=== PATIENT | female | born 1955 ===

== ENCOUNTER 2020-06-08 18:20 | Inpatient (IN) | payer MEDICARE ==
[2020-06-08] MEDS ORDERED: ACETAMINOPHEN TAB 325 MG TAB PO PRN (22:40)
[2020-06-08] MEDS: NICOTINE 21MG/24HR PATCH TRANSDERM SCH (23:51)
[2020-06-08] MEDS: methylPREDNISolone SOD SUCCI 125 MG/2 ML VIAL IV SCH (23:51)
[2020-06-08] MEDS: SODIUM CHLORIDE 0.9% 1,000 ML IV SCH (23:52)
[2020-06-09] MEDS: methylPREDNISolone SOD SUCCI 125 MG/2 ML VIAL IV SCH (06:27)
[2020-06-09] MEDS: NICOTINE 21MG/24HR PATCH TRANSDERM SCH (07:24)
[2020-06-09] MEDS: HEPARIN SODIUM,PORCINE 5,000 UNIT/ML 1 ML VIAL SQ SCH ×2 (07:35→20:33)
[2020-06-09 08:02] LABS: Basophils % (A) 1 %; Eosinophils % (A) 0 %; HCT 42.7 % (34.0-46.0); HGB 12.5 gm/dL (11.4-16.0); Hypochromasia Marked; Lymphocytes # (A) 0.6 k/uL (1.0-4.8); Lymphocytes % (A) 11 %; MCH 29.5 pg (25.0-35.0); MCHC 29.3 g/dL (31.0-37.0); MCV 100.7 fL (80.0-100.0); Mean Platelet Volume 7.5; Monocytes # (A) 0.1 k/uL (0-1.0); Monocytes % (A) 2 %; Neutrophils % (A) 86 %; Platelet Count 182 k/uL (150-450); RBC 4.24 m/uL (3.80-5.40); RDW 13.5 % (11.5-15.5); WBC 5.8 k/uL (3.8-10.6)
--- NOTE | 2020-06-09 08:18 | XR ---
EXAMINATION TYPE: XR chest 2V DATE OF EXAM: 06/09/2020 COMPARISON: NONE HISTORY: History of CHF with shortness of breath TECHNIQUE: Frontal and lateral views of the chest are obtained. FINDINGS: There is background chronic emphysematous change without suspicious focal air space opacit y, pleural effusion, or pneumothorax seen. The cardiac silhouette size is mildly enlarged with ather osclerotic change aortic knob. The osseous structures are demineralized. IMPRESSION: Chronic emphysematous change and mild cardiomegaly without suspicious acute pulmonary pr ocess.
[2020-06-09 08:21] LABS: African American GFR (CKD) >90 (>60 ml/min/1.73 sqM); Anion Gap 6 mmol/L; Blood Urea Nitrogen 13 mg/dL (7-17); Calcium 8.8 mg/dL (8.4-10.2); Carbon Dioxide 38 mmol/L (22-30); Chloride 95 mmol/L (98-107); Glucose 206 mg/dL (74-99); Non-African American GFR(CKD) >90 (>60 ml/min/1.73 sqM); Potassium 5.1 mmol/L (3.5-5.1); Sodium 139 mmol/L (137-145)
[2020-06-09] MEDS: SYMBICORT 160-4.5 MCG INHALER INHALATION SCH ×2 (08:29→19:37)
[2020-06-09] MEDS: IPRATROPIUM-ALBUTEROL 3 ML NEB INHALATION PRN ×3 (08:29→19:37)
[2020-06-09] MEDS: DOXYCYCLINE 100 MG in SODIUM CHLORIDE 0.9% 100 ML IVPB SCH ×2 (08:34→20:32)
[2020-06-09] MEDS ORDERED: FAMOTIDINE 20 MG TAB PO SCH (09:00)
--- NOTE | 2020-06-09 11:36 | P.HPIM ---
History of Present Illness Patient is 63-year-old female is admitted for COPD exacerbation patient has symptoms for last few days with cough and sputum production yellowish production. Patient smokes about 1 pack per day trying to quit smoking. Unable to get much of the history as patient is sleepy and drowsy. Patient chest x-ray did not show any pneumonia. Patient was started on doxycycline and systemic steroids. Review of Systems All other review of systems is negative except for those mentioned above Past Medical History Past Medical History: Heart Failure, COPD History of Any Multi-Drug Resistant Organisms: None Reported Past Surgical History: Cholecystectomy, Tonsillectomy Additional Past Surgical History / Comment(s): brocke neck young, ankle surgery Past Anesthesia/Blood Transfusion Reactions: No Reported Reaction Past Psychological History: No Psychological Hx Reported Smoking Status: Current every day smoker Past Alcohol Use History: None Reported - Past Family History Mother Family Medical History: COPD Medications and Allergies Home Medications Medication Instructions Recorded Confirmed Type Ipratropium-Albuterol Nebulize 3 ml INHALATION RT-TID 06/08/20 06/08/20 History [Duoneb 0.5 mg-3 mg/3 ml Soln] Allergies Allergy/AdvReac Type Severity Reaction Status Date / Time No Known Allergies Allergy Verified 06/08/20 23:24 Physical Exam Vitals: Vital Signs Temp Pulse Pulse Resp BP Pulse Ox 06/09/20 11:24 118 H 20 116/73 95 06/09/20 08:46 128 H 06/09/20 08:29 124 H 06/09/20 08:11 18 06/09/20 07:00 98.3 F 114 H 18 111/72 91 L 06/09/20 04:00 17 06/09/20 01:20 98.3 F 138 H 17 114/65 94 L 06/09/20 00:00 20 06/08/20 22:55 98.1 F 118 H 16 119/78 96 Intake and Output 06/08/20 06/09/20 06/09/20 22:59 06:59 14:59 Other: Weight 52.5 kg PHYSICAL EXAMINATION: GENERAL: The patient is alert and oriented x3, not in any acute distress. Well developed, well nourished. HEENT: Pupils are round and equally reacting to light. EOMI. No scleral icterus. No conjunctival pallor. Normocephalic, atraumatic. No pharyngeal erythema. No thyromegaly. CARDIOVASCULAR: S1 and S2 present. No murmurs, rubs, or gallops. PULMONARY: Diffuse bilateral rhonchi and the significant expiratory wheezing on exam ABDOMEN: Soft, nontender, nondistended, normoactive bowel sounds. No palpable organomegaly. MUSCULOSKELETAL: No joint swelling or deformity. EXTREMITIES: No cyanosis, clubbing, or pedal edema. NEUROLOGICAL: Gross neurological examination did not reveal any focal deficits. SKIN: No rashes. Results CBC & Chem 7: 06/09/20 07:37 06/09/20 07:37 Labs: Abnormal Lab Results - Last 24 Hours (Table) 06/09/20 06/09/20 Range/Units 07:37 07:37 MCV 100.7 H (80.0-100.0) fL MCHC 29.3 L (31.0-37.0) g/dL Lymphocytes # 0.6 L (1.0-4.8) k/uL Chloride 95 L (98-107) mmol/L Carbon Dioxide 38 H (22-30) mmol/L Creatinine 0.42 L (0.52-1.04) mg/dL Glucose 206 H (74-99) mg/dL Thrombosis Risk Factor Assmnt - Choose All That Apply Each Factor Represents 1 point: Abnormal pulmonary function (COPD) Each Risk Factor Represents 2 Points: Age 61-74 years Thrombosis Risk Factor Assessment Total Risk Factor Score: 3 Thrombosis Risk Factor Assessment Level: Moderate Risk Assessment and Plan Plan: -Acute hypercapnic respiratory failure secondary to COPD exacerbation patient will continue on systemic steroids and inhalational treatments and doxycycline -Severe tracheal bronchitis continued on cyclosporine cultures will be obtained - sinus tachycardia secondary to hypoxemia -Continued nicotine use: Counseling was provided -DVT prophylaxis with the Lovenox and GI prophylaxis with Pepcid
--- NOTE | 2020-06-09 14:04 | P.CNPUL ---
History of Present Illness Consult date: 06/09/20 Requesting physician: Markus Kaye Reason for consult: dyspnea Chief complaint: Dyspnea, wheezing coughing History of present illness: 64-year-old white female patient, chronic smoker, with known history of COPD, on home oxygen at 2 L around the clock, who came in for evaluation of increased shortness of breath, patient was having heart time walking related to exertional dyspnea, wheezing, cough. Patient lives at her brother's house, with multiple other people in the house who are smokers. Patient was producing some yellow colored sputum. Patient was sleepy and drowsy. Chest x-ray showed chronic emphysematous changes and mild cardio megaly without suspicious acute pulmonary process. She was started on nebulized bronchodilators, Symbicort, IV steroids. Labs reviewed, white blood cell count is within normal limits 5.8, hemoglobin is 12.5, sodium is 139, potassium 5.1, chloride is 95, CO2 38, BUN is 13, creatinine 0.42. Currently awake and alert, answering questions appropriately, she has a loose congested cough, diffuse wheezing and rhonchi bilaterally. Afebrile, currently on 4 L of oxygen and the pulse ox of 95%. Review of Systems All systems: negative Constitutional: Denies chills, Denies fever Eyes: denies blurred vision, denies pain Ears, nose, mouth and throat: Denies headache, Denies sore throat Cardiovascular: Denies chest pain, Denies shortness of breath Respiratory: Reports congestion, Reports cough with sputum, Reports dyspnea, Reports respiratory infections, Reports wheezing, Denies cough Gastrointestinal: Denies abdominal pain, Denies diarrhea, Denies nausea, Denies vomiting Genitourinary: Denies dysuria, Denies hematuria Musculoskeletal: Denies myalgias Integumentary: Denies pruritus, Denies rash Neurological: Denies numbness, Denies weakness Psychiatric: Denies anxiety, Denies depression Endocrine: Denies fatigue, Denies weight change Past Medical History Past Medical History: COPD History of Any Multi-Drug Resistant Organisms: None Reported Past Surgical History: Cholecystectomy, Tonsillectomy Additional Past Surgical History / Comment(s): Neck surgery post swimming accident, ankle surgery Past Anesthesia/Blood Transfusion Reactions: No Reported Reaction Past Psychological History: No Psychological Hx Reported Smoking Status: Current every day smoker Past Alcohol Use History: None Reported - Past Family History Mother Family Medical History: COPD Medications and Allergies Home Medications Medication Instructions Recorded Confirmed Type Ipratropium-Albuterol Nebulize 3 ml INHALATION RT-TID 06/08/20 06/08/20 History [Duoneb 0.5 mg-3 mg/3 ml Soln] Allergies Allergy/AdvReac Type Severity Reaction Status Date / Time No Known Allergies Allergy Verified 06/08/20 23:24 Physical Exam Vitals: Vital Signs Temp Pulse Pulse Resp BP Pulse Ox 06/09/20 12:09 124 H 06/09/20 11:55 120 H 06/09/20 11:24 118 H 20 116/73 95 06/09/20 08:46 128 H 06/09/20 08:29 124 H 06/09/20 08:11 18 06/09/20 07:00 98.3 F 114 H 18 111/72 91 L 06/09/20 04:00 17 06/09/20 01:20 98.3 F 138 H 17 114/65 94 L 06/09/20 00:00 20 06/08/20 22:55 98.1 F 118 H 16 119/78 96 Intake and Output 06/08/20 06/09/20 06/09/20 22:59 06:59 14:59 Intake Total 550 Balance 550 Intake: Intake, IV Titration 300 Amount Sodium Chloride 0.9% 1, 300 000 ml @ 50 mls/hr IV . Q20H [facility] Rx#:[id number] Oral 250 Other: # Voids 1 Weight 52.5 kg GENERAL EXAM: Alert, very pleasant, 64-year-old white female, for liters of oxygen pulse ox of 95% comfortable in no apparent distress. HEAD: Normocephalic/atraumatic. EYES: Normal reaction of pupils, equal size. Conjunctiva pink, sclera white. NOSE: Clear with pink turbinates. THROAT: No erythema or exudates. NECK: No masses, no JVD, no thyroid enlargement, no adenopathy. CHEST: No chest wall deformity. Symmetrical expansion. LUNGS: Equal air entry with diffuse wheezes, rhonchi CVS: Regular rate and rhythm, normal S1 and S2, no gallops, no murmurs, no rubs ABDOMEN: Soft, nontender. No hepatosplenomegaly, normal bowel sounds, no guarding or rigidity. EXTREMITIES: No clubbing, no edema, no cyanosis, 2+ pulses and upper and lower extremities. MUSCULOSKELETAL: Muscle strength and tone normal. SPINE: No scoliosis or deformity SKIN: No rashes CENTRAL NERVOUS SYSTEM: Alert and oriented -3. No focal deficits, tone is normal in all 4 extremities. PSYCHIATRIC: Alert and oriented -3. Appropriate affect. Intact judgment and insight. Results - Laboratory Findings CBC and BMP: 06/09/20 07:37 06/09/20 07:37 Abnormal lab findings: Abnormal Labs 06/09/20 06/09/20 07:37 07:37 MCV 100.7 H MCHC 29.3 L Lymphocytes # 0.6 L Chloride 95 L Carbon Dioxide 38 H Creatinine 0.42 L Glucose 206 H - Diagnostic Findings Chest x-ray: report reviewed, image reviewed Assessment and Plan Plan: Assessment: #1. Acute on chronic hypoxic respiratory failure related to acute exacerbation of COPD and purulent tracheobronchitis #2. Suspect chronic hypercapnic respiratory failure related to COPD #3. Chronic and ongoing history of smoking Plan: Continue with current medical treatment, steroids, nebulized bronchodilators, empiric antibiotics, patient is quite bronchospastic and dyspneic. Chest x-ray has been reviewed showing no acute process. Smoking cessation was advised I performed a history & physical examination of the patient and discussed their management with my nurse practitioner, Nadia Saunders. I reviewed the nurse practitioner's note and agree with the documented findings and plan of care. Lung sounds are positive for diffuse wheezes throughout the lung canela. The findings and the impression was discussed with the patient. I attest to the documentation by the nurse practitioner. Time with Patient: Greater than 30
[2020-06-09] MEDS: methylPREDNISolone SOD SUCCI 40 MG/ML 1 ML VIAL IV SCH ×2 (16:50→23:04)
[2020-06-09] MEDS: SODIUM CHLORIDE 0.9% 1,000 ML IV SCH (16:53)
[2020-06-09] MEDS: FAMOTIDINE 20 MG TAB PO SCH (20:33)
[2020-06-09] MEDS: DOCUSATE 100 MG CAP PO PRN (21:18)
[2020-06-10] MEDS: SYMBICORT 160-4.5 MCG INHALER INHALATION SCH ×2 (07:05→20:12)
[2020-06-10] MEDS: DOXYCYCLINE 100 MG in SODIUM CHLORIDE 0.9% 100 ML IVPB SCH ×2 (07:39→20:30)
[2020-06-10] MEDS: methylPREDNISolone SOD SUCCI 40 MG/ML 1 ML VIAL IV SCH ×3 (07:40→23:06)
[2020-06-10] MEDS: NICOTINE 21MG/24HR PATCH TRANSDERM SCH (07:43)
[2020-06-10] MEDS: HEPARIN SODIUM,PORCINE 5,000 UNIT/ML 1 ML VIAL SQ SCH ×2 (07:45→20:30)
[2020-06-10] MEDS: FAMOTIDINE 20 MG TAB PO SCH ×2 (07:47→20:30)
[2020-06-10] MEDS ORDERED: ENOXAPARIN 40 MG/0.4 ML SYRINGE SQ SCH (09:00)
--- NOTE | 2020-06-10 11:11 | P.PN ---
Subjective Progress Note Date: 06/10/20 Principal diagnosis: Acute on chronic hypoxic respiratory failure related to acute exacerbation of COPD 64-year-old white female patient, chronic smoker, with known history of COPD, on home oxygen at 2 L around the clock, who came in for evaluation of increased shortness of breath, patient was having heart time walking related to exertional dyspnea, wheezing, cough. Patient lives at her brother's house, with multiple other people in the house who are smokers. Patient was producing some yellow colored sputum. Patient was sleepy and drowsy. Chest x-ray showed chronic emp hysematous changes and mild cardio megaly without suspicious acute pulmonary process. She was started on nebulized bronchodilators, Symbicort, IV steroids. Labs reviewed, white blood cell count is within normal limits 5.8, hemoglobin is 12.5, sodium is 139, potassium 5.1, chloride is 95, CO2 38, BUN is 13, creatinine 0.42. Currently awake and alert, answering questions appropriately, she has a loose congested cough, diffuse wheezing and rhonchi bilaterally. Afebrile, currently on 4 L of oxygen and the pulse ox of 95%. On 06/10/2020 patient is seen in follow-up on a general medical surgical floor, she is awake and alert, still quite dyspneic with any exertion and bronchospastic, and has a congested cough. Patient remains on antibiotics, IV steroids, nebulized bronchodilators, patient is on 4 L oxygen and pulse ox of 96%, slightly tachycardic, no fever or chills. No new labs today. Cough with occasional production of yellowish sputum. Objective - Vital Signs Vital signs: Vital Signs Temp 97.2 F L 06/10/20 07:00 Pulse 110 H 06/10/20 07:00 Resp 17 06/10/20 08:00 BP 109/69 06/10/20 07:00 Pulse Ox 96 06/10/20 07:00 Intake & Output 06/09/20 06/10/20 06/10/20 18:59 06:59 18:59 Intake Total 750 Balance 750 Intake: Intake, IV Titration 300 Amount Sodium Chloride 0.9% 1, 300 000 ml @ 50 mls/hr IV . Q20H [facility] Rx#:[id number] Oral 450 Other: # Voids 1 2 - Exam GENERAL EXAM: Alert, very pleasant, 64-year-old white female, 4 liters of oxygen pulse ox of 96% comfortable in no apparent distress. HEAD: Normocephalic/atraumatic. EYES: Normal reaction of pupils, equal size. Conjunctiva pink, sclera white. NOSE: Clear with pink turbinates. THROAT: No erythema or exudates. NECK: No masses, no JVD, no thyroid enlargement, no adenopathy. CHEST: No chest wall deformity. Symmetrical expansion. LUNGS: Equal air entry with diffuse wheezes, rhonchi CVS: Regular rate and rhythm, normal S1 and S2, no gallops, no murmurs, no rubs ABDOMEN: Soft, nontender. No hepatosplenomegaly, normal bowel sounds, no guarding or rigidity. EXTREMITIES: No clubbing, no edema, no cyanosis, 2+ pulses and upper and lower extremities. MUSCULOSKELETAL: Muscle strength and tone normal. SPINE: No scoliosis or deformity SKIN: No rashes CENTRAL NERVOUS SYSTEM: Alert and oriented -3. No focal deficits, tone is normal in all 4 extremities. PSYCHIATRIC: Alert and oriented -3. Appropriate affect. Intact judgment and insight. - Labs CBC & Chem 7: 06/09/20 07:37 06/09/20 07:37 Assessment and Plan Plan: Assessment: #1. Acute on chronic hypoxic respiratory failure related to acute exacerbation of COPD and purulent tracheobronchitis #2. Suspect chronic hypercapnic respiratory failure related to COPD #3. Chronic and ongoing history of smoking Plan: Continue current medical treatment, continue antibiotics, patient still quite bronchospastic and dyspneic, not back to baseline. Wean FiO2. I performed a history & physical examination of the patient and discussed their management with my nurse practitioner, Nadia Saunders. I reviewed the nurse practitioner's note and agree with the documented findings and plan of care. Lung sounds are positive for diffuse wheezes throughout the lung canela. The findings and the impression was discussed with the patient. I attest to the documentation by the nurse practitioner. Time with Patient: Less than 30
[2020-06-10] MEDS: SODIUM CHLORIDE 0.9% 1,000 ML IV SCH (13:25)
[2020-06-10] MEDS: IPRATROPIUM-ALBUTEROL 3 ML NEB INHALATION PRN ×2 (16:05→20:11)
--- NOTE | 2020-06-10 16:52 | P.PN ---
Subjective Progress Note Date: 06/10/20 Principal diagnosis: Patient is 63-year-old female is admitted for COPD exacerbation patient has symptoms for last few days with cough and sputum production yellowish production. Patient smokes about 1 pack per day trying to quit smoking. Unable to get much of the history as patient is sleepy and drowsy. Patient chest x-ray did not show any pneumonia. Patient was started on doxycycline and systemic steroids. 06/10/2020 Patient is seen and evaluated in follow-up and continues to be quite dyspneic and bronchospastic and is having coughing spells when attempting to talk. Patient states she is having more mucus production and able to expectorate. Patient is currently maintained on IV antibiotics in the form of doxycycline along with IV steroids and breathing inhalational treatments and will continue at this time. Pulmonary is following. Patient is awake and alert and oriented sitting up in the chair. Patient is currently maintained on 4 L of oxygen and discussed with nursing staff about increasing activity and weaning off FiO2. Patient does have a nebulizer at home although is requesting a new one and a prescription was provided to case management for this. Review of systems: Constitutional: Reports mild fatigue, no reports of fever, or chills Cardiovascular: No reports of chest pain or palpitations Respiratory: Reports shortness of breath and cough with phlegm production GI: No reports of nausea, vomiting, or diarrhea : No reports of dysuria or retention Neurovascular: No reports of weakness or numbness All medications have been reviewed Objective - Vital Signs Vital signs: Vital Signs Temp 97.2 F L 06/10/20 07:00 Pulse 110 H 06/10/20 07:00 Resp 17 06/10/20 08:00 BP 109/69 06/10/20 07:00 Pulse Ox 96 06/10/20 07:00 Intake & Output 06/09/20 06/10/20 06/10/20 18:59 06:59 18:59 Intake Total 750 700 Balance 750 700 Intake: Intake, IV Titration 300 400 Amount Sodium Chloride 0.9% 1, 300 400 000 ml @ 50 mls/hr IV . Q20H [facility] Rx#:[id number] Oral 450 300 Other: # Voids 1 2 2 - Exam GENERAL: The patient is alert and oriented x3, not in any acute distress. Well developed, well nourished. HEENT: Pupils are round and equally reacting to light. EOMI. No scleral icterus. No conjunctival pallor. Normocephalic, atraumatic. No pharyngeal erythema. No thyromegaly. CARDIOVASCULAR: S1 and S2 present. No murmurs, rubs, or gallops. PULMONARY: Diffuse bilateral rhonchi and the significant expiratory wheezing on exam, bronchospastic ABDOMEN: Soft, nontender, nondistended, normoactive bowel sounds. No palpable organomegaly. MUSCULOSKELETAL: No joint swelling or deformity. EXTREMITIES: No cyanosis, clubbing, or pedal edema. NEUROLOGICAL: Gross neurological examination did not reveal any focal deficits. SKIN: No rashes. - Labs CBC & Chem 7: 06/09/20 07:37 06/09/20 07:37 Assessment and Plan Assessment: -Acute hypercapnic respiratory failure secondary to COPD exacerbation patient will continue on systemic steroids and inhalational treatments and doxycycline -Severe purulent tracheobronchitis continued on cyclosporine, cultures will be obtained -sinus tachycardia secondary to hypoxemia -Continued nicotine use: Counseling was provided -DVT prophylaxis with the Lovenox -GI prophylaxis with Pepcid -Full code And: Continue current medications, management, and symptomatic treatment. Patient is maintained on IV steroids along with IV antibiotics in the form of doxycycline and breathing inhalational treatments and will continue at this time. We'll discontinue IV fluids. Will repeat a.m. labs. Instructed the patient to increase activity as tolerated. Discussed with nursing staff about weaning down FiO2. Prescription provided for nebulizer to case management. Further recommendations to follow. Possible discharge in 24-48 hours.
[2020-06-10] MEDS: DOCUSATE 100 MG CAP PO PRN (20:29)
[2020-06-11 06:55] LABS: Glucose,Whole Blood 126 mg/dL (75-99)
[2020-06-11 07:40] LABS: Basophils % (A) 0 %; Eosinophils % (A) 0 %; HCT 37.2 % (34.0-46.0); HGB 10.9 gm/dL (11.4-16.0); Hypochromasia Marked; Lymphocytes % (A) 13 %; MCH 29.4 pg (25.0-35.0); MCHC 29.4 g/dL (31.0-37.0); Mean Platelet Volume 8.4; Monocytes # (A) 0.4 k/uL (0-1.0); Monocytes % (A) 6 %; Neutrophils % (A) 80 %; Platelet Count 166 k/uL (150-450); RBC 3.72 m/uL (3.80-5.40); RDW 13.5 % (11.5-15.5); WBC 7.5 k/uL (3.8-10.6)
[2020-06-11 07:52] LABS: African American GFR (CKD) >90 (>60 ml/min/1.73 sqM); Blood Urea Nitrogen 16 mg/dL (7-17); Calcium 8.6 mg/dL (8.4-10.2); Chloride 96 mmol/L (98-107); Glucose 124 mg/dL (74-99); Non-African American GFR(CKD) >90 (>60 ml/min/1.73 sqM); Potassium 4.2 mmol/L (3.5-5.1); Sodium 142 mmol/L (137-145)
[2020-06-11 07:59] LABS: Anion Gap 1 mmol/L
[2020-06-11] MEDS: SYMBICORT 160-4.5 MCG INHALER INHALATION SCH ×2 (08:04→20:36)
[2020-06-11 08:06] LABS: Carbon Dioxide 45 mmol/L (22-30)
[2020-06-11] MEDS: HEPARIN SODIUM,PORCINE 5,000 UNIT/ML 1 ML VIAL SQ SCH ×2 (08:21→20:17)
[2020-06-11] MEDS: NICOTINE 21MG/24HR PATCH TRANSDERM SCH (08:21)
[2020-06-11] MEDS: DOXYCYCLINE 100 MG in SODIUM CHLORIDE 0.9% 100 ML IVPB SCH ×2 (08:21→20:17)
[2020-06-11] MEDS: methylPREDNISolone SOD SUCCI 40 MG/ML 1 ML VIAL IV SCH ×3 (08:21→22:48)
[2020-06-11] MEDS: FAMOTIDINE 20 MG TAB PO SCH ×2 (08:21→20:17)
[2020-06-11] MEDS: DOCUSATE 100 MG CAP PO PRN (08:28)
[2020-06-11] MEDS: SODIUM CHLORIDE 0.9% 1,000 ML IV SCH ×2 (11:27→22:48)
--- NOTE | 2020-06-11 11:37 | P.PN ---
Subjective Progress Note Date: 06/11/20 Principal diagnosis: Acute on chronic hypoxic respiratory failure secondary to an acute exacerbation of COPD 64-year-old white female patient, chronic smoker, with known history of COPD, on home oxygen at 2 L around the clock, who came in for evaluation of increased shortness of breath, patient was having heart time walking related to exertional dyspnea, wheezing, cough. Patient lives at her brother's house, with multiple other people in the house who are smokers. Patient was producing some yellow colored sputum. Patient was sleepy and drowsy. Chest x-ray showed chronic emphysematous changes and mild cardio megaly without suspicious acute pulmonary process. She was started on nebulized bronchodilators, Symbicort, IV steroids. Labs reviewed, white blood cell count is within normal limits 5.8, hemoglobin is 12.5, sodium is 139, potassium 5.1, chloride is 95, CO2 38, BUN is 13, creatinine 0.42. Currently awake and alert, answering questions appropriately, she has a loose congested cough, diffuse wheezing and rhonchi bilaterally. Afebrile, currently on 4 L of oxygen and the pulse ox of 95%. On 06/10/2020 patient is seen in follow-up on a general medical surgical floor, she is awake and alert, still quite dyspneic with any exertion and bronchospastic, and has a congested cough. Patient remains on antibiotics, IV steroids, nebulized bronchodilators, patient is on 4 L oxygen and pulse ox of 96%, slightly tachycardic, no fever or chills. No new labs today. Cough with occasional production of yellowish sputum. The patient is seen today 06/11/2020 and follow-up on the regular medical floor. She is resting comfortably in bed. Awake and alert in no acute distress. She is still dyspneic with conversation. Dyspneic with minimal exertion. Still bronchospastic and wheezy. States she is feeling a bit better than yesterday but not quite back to her baseline. She is maintaining O2 saturation in the low 90s on 3 L/m per nasal cannula. She's afebrile. White count 10.5. Hemoglobin 10.9. Bicarb 45. Creatinine 0.52. She remains on Symbicort, DuoNeb's, IV Solu-Medrol. Empiric antibiotics in the form of doxycycline. Habitrol patch in place. Objective - Vital Signs Vital signs: Vital Signs Temp 97.7 F 06/11/20 07:00 Pulse 100 06/11/20 07:00 Resp 17 06/11/20 07:00 BP 113/70 06/11/20 07:00 Pulse Ox 93 L 06/11/20 07:00 Intake & Output 06/10/20 06/11/20 06/11/20 18:59 06:59 18:59 Intake Total 700 Balance 700 Intake: Intake, IV Titration 400 Amount Sodium Chloride 0.9% 1, 400 000 ml @ 50 mls/hr IV . Q20H [facility] Rx#:[id number] Oral 300 Other: Voiding Method Toilet # Voids 2 1 - Exam GENERAL EXAM: Alert, pleasant 64-year-old female patient, on 3 L nasal cannula with O2 saturation at 93%, comfortable in no apparent distress. HEAD: Normocephalic. EYES: Normal reaction of pupils, equal size. NOSE: Clear with pink turbinates. THROAT: No erythema or exudates. NECK: No masses, no JVD. CHEST: No chest wall deformity. LUNGS: Equal air entry with eye lateral end expiratory wheeze, few scattered rhonchi, diminished. CVS: S1 and S2 normal with no audible murmur, regular rhythm. ABDOMEN: No hepatosplenomegaly, normal bowel sounds, no guarding or rigidity. SPINE: No scoliosis or deformity SKIN: No rashes CENTRAL NERVOUS SYSTEM: No focal deficits, tone is normal in all 4 extremities. EXTREMITIES: There is no peripheral edema. No clubbing, no cyanosis. Peripheral pulses are intact. - Labs CBC & Chem 7: 06/11/20 07:19 06/11/20 07:19 Labs: Abnormal Lab Results - Last 24 Hours (Table) 06/11/20 06/11/20 06/11/20 Range/Units 06:54 07:19 07:19 RBC 3.72 L (3.80-5.40) m/uL Hgb 10.9 L (11.4-16.0) gm/dL MCHC 29.4 L (31.0-37.0) g/dL Chloride 96 L (98-107) mmol/L Carbon Dioxide 45 H* (22-30) mmol/L Glucose 124 H (74-99) mg/dL POC Glucose (mg/dL) 126 H (75-99) mg/dL Assessment and Plan Assessment: #1. Acute on chronic hypoxic respiratory failure related to acute exacerbation of COPD and purulent tracheobronchitis #2. Suspect chronic hypercapnic respiratory failure related to COPD #3. Chronic and ongoing history of smoking Plan: The patient was seen and evaluated by Dr. Huggins. She is still not quite back to her baseline. Continue the current treatment plan Titrate down the FiO2 as tolerated We'll continue to follow I, the cosigning physician, performed a history & physical examination of the patient. Lungs sounds with bilateral end expiratory wheeze, few scattered rhonchi, diminished. Maintaining good O2 saturations in the 90s on 3 L/m per nasal cannula I discussed the assessment and plan of care with my nurse practitioner, Yasmin Plasencia. I attest to the above note as dictated by her.
[2020-06-11 11:52] LABS: Glucose,Whole Blood 133 mg/dL (75-99)
--- NOTE | 2020-06-11 12:49 | P.PN ---
Subjective Patient is 63-year-old female is admitted for COPD exacerbation patient has symptoms for last few days with cough and sputum production yellowish pr oduction. Patient smokes about 1 pack per day trying to quit smoking. Unable to get much of the history as patient is sleepy and drowsy. Patient chest x-ray did not show any pneumonia. Patient was started on doxycycline and systemic steroids. 06/10/2020 Patient is seen and evaluated in follow-up and continues to be quite dyspneic and bronchospastic and is having coughing spells when attempting to talk. Patient states she is having more mucus production and able to expectorate. Patient is currently maintained on IV antibiotics in the form of doxycycline along with IV steroids and breathing inhalational treatments and will continue at this time. Pulmonary is following. Patient is awake and alert and oriented sitting up in the chair. Patient is currently maintained on 4 L of oxygen and discussed with nursing staff about increasing activity and weaning off FiO2. Patient does have a nebulizer at home although is requesting a new one and a prescription was provided to case management for this. 06/11/2020 Patient is still having symptoms and wheezing on exam. Patient is feeling better but not at her baseline as per the patient Review of systems: Constitutional: Reports mild fatigue, no reports of fever, or chills Cardiovascular: No reports of chest pain or palpitations Respiratory: Reports shortness of breath and cough with phlegm production GI: No reports of nausea, vomiting, or diarrhea : No reports of dysuria or retention Neurovascular: No reports of weakness or numbness Objective - Vital Signs Vital signs: Vital Signs Temp 97.7 F 06/11/20 07:00 Pulse 100 06/11/20 07:00 Resp 17 06/11/20 07:00 BP 113/70 06/11/20 07:00 Pulse Ox 93 L 06/11/20 07:00 Intake & Output 06/10/20 06/11/20 06/11/20 18:59 06:59 18:59 Intake Total 700 Balance 700 Intake: Intake, IV Titration 400 Amount Sodium Chloride 0.9% 1, 400 000 ml @ 50 mls/hr IV . Q20H [facility] Rx#:[id number] Oral 300 Other: Voiding Method Toilet # Voids 2 1 - Exam GENERAL: The patient is alert and oriented x3, not in any acute distress. Well developed, well nourished. HEENT: Pupils are round and equally reacting to light. EOMI. No scleral icterus. No conjunctival pallor. Normocephalic, atraumatic. No pharyngeal erythema. No thyromegaly. CARDIOVASCULAR: S1 and S2 present. No murmurs, rubs, or gallops. PULMONARY: Diffuse bilateral rhonchi and the significant expiratory wheezing on exam, bronchospastic ABDOMEN: Soft, nontender, nondistended, normoactive bowel sounds. No palpable organomegaly. MUSCULOSKELETAL: No joint swelling or deformity. EXTREMITIES: No cyanosis, clubbing, or pedal edema. NEUROLOGICAL: Gross neurological examination did not reveal any focal deficits. SKIN: No rashes. - Labs CBC & Chem 7: 06/11/20 07:19 06/11/20 07:19 Labs: Abnormal Lab Results - Last 24 Hours (Table) 06/11/20 06/11/20 06/11/20 Range/Units 06:54 07:19 07:19 RBC 3.72 L (3.80-5.40) m/uL Hgb 10.9 L (11.4-16.0) gm/dL MCHC 29.4 L (31.0-37.0) g/dL Chloride 96 L (98-107) mmol/L Carbon Dioxide 45 H* (22-30) mmol/L Glucose 124 H (74-99) mg/dL POC Glucose (mg/dL) 126 H (75-99) mg/dL 06/11/20 Range/Units 11:50 RBC (3.80-5.40) m/uL Hgb (11.4-16.0) gm/dL MCHC (31.0-37.0) g/dL Chloride (98-107) mmol/L Carbon Dioxide (22-30) mmol/L Glucose (74-99) mg/dL POC Glucose (mg/dL) 133 H (75-99) mg/dL Assessment and Plan Plan: -Acute hypercapnic respiratory failure secondary to COPD exacerbation patient will continue on systemic steroids and inhalational treatments and doxycycline. Patient is presently in status was initially uses 2 L at home -Severe tracheal bronchitis continue with doxycycline. - sinus tachycardia secondary to hypoxemia -Continued nicotine use: Counseling was provided -DVT prophylaxis with the Lovenox and GI prophylaxis with Pepcid
[2020-06-11 16:57] LABS: Glucose,Whole Blood 118 mg/dL (75-99)
[2020-06-11 20:15] LABS: Glucose,Whole Blood 141 mg/dL (75-99)
[2020-06-11] MEDS ORDERED: polyethylene glycoL 3350 17 GM POWD.PACK PO PRN (22:33)
[2020-06-12 06:48] LABS: Glucose,Whole Blood 122 mg/dL (75-99)
[2020-06-12] MEDS: FAMOTIDINE 20 MG TAB PO SCH ×2 (07:03→20:20)
[2020-06-12] MEDS: methylPREDNISolone SOD SUCCI 40 MG/ML 1 ML VIAL IV SCH ×2 (07:03→20:20)
[2020-06-12] MEDS: NICOTINE 21MG/24HR PATCH TRANSDERM SCH (07:03)
[2020-06-12] MEDS: HEPARIN SODIUM,PORCINE 5,000 UNIT/ML 1 ML VIAL SQ SCH ×2 (07:03→20:20)
[2020-06-12] MEDS: DOXYCYCLINE 100 MG in SODIUM CHLORIDE 0.9% 100 ML IVPB SCH ×2 (07:08→20:20)
[2020-06-12] MEDS: SODIUM CHLORIDE 0.9% 1,000 ML IV SCH ×2 (07:16→17:11)
[2020-06-12] MEDS: IPRATROPIUM-ALBUTEROL 3 ML NEB INHALATION PRN ×4 (07:47→20:26)
[2020-06-12] MEDS: SYMBICORT 160-4.5 MCG INHALER INHALATION SCH ×2 (07:48→20:26)
--- NOTE | 2020-06-12 09:43 | P.PN ---
Subjective Patient is 63-year-old female is admitted for COPD exacerbation patient has symptoms for last few days with cough and sputum production yellowish pr oduction. Patient smokes about 1 pack per day trying to quit smoking. Unable to get much of the history as patient is sleepy and drowsy. Patient chest x-ray did not show any pneumonia. Patient was started on doxycycline and systemic steroids. 06/10/2020 Patient is seen and evaluated in follow-up and continues to be quite dyspneic and bronchospastic and is having coughing spells when attempting to talk. Patient states she is having more mucus production and able to expectorate. Patient is currently maintained on IV antibiotics in the form of doxycycline along with IV steroids and breathing inhalational treatments and will continue at this time. Pulmonary is following. Patient is awake and alert and oriented sitting up in the chair. Patient is currently maintained on 4 L of oxygen and discussed with nursing staff about increasing activity and weaning off FiO2. Patient does have a nebulizer at home although is requesting a new one and a prescription was provided to case management for this. 06/11/2020 Patient is still having symptoms and wheezing on exam. Patient is feeling better but not at her baseline as per the patient 06/12/2020 She is still wheezing quite a bit will try to wean her off oxygen. She'll continued on IV fluids. Heart rate has come down a bit patient overall is feeling better than admission. Review of systems: Constitutional: Reports mild fatigue, no reports of fever, or chills Cardiovascular: No reports of chest pain or palpitations Respiratory: In use to have shortness of breath GI: No reports of nausea, vomiting, or diarrhea : No reports of dysuria or retention Neurovascular: No reports of weakness or numbness Objective - Vital Signs Vital signs: Vital Signs Temp 97.7 F 06/12/20 07:00 Pulse 100 06/12/20 08:02 Resp 16 06/12/20 07:00 BP 106/69 06/12/20 07:00 Pulse Ox 100 06/12/20 07:00 Intake & Output 06/11/20 06/12/20 06/12/20 18:59 06:59 18:59 Other: # Voids 1 2 # Bowel Movements 1 - Exam GENERAL: The patient is alert and oriented x3, not in any acute distress. Well developed, well nourished. HEENT: Pupils are round and equally reacting to light. EOMI. No scleral icterus. No conjunctival pallor. Normocephalic, atraumatic. No pharyngeal erythema. No thyromegaly. CARDIOVASCULAR: S1 and S2 present. No murmurs, rubs, or gallops. PULMONARY: Diffuse bilateral rhonchi and the significant expiratory wheezing on exam, bronchospastic ABDOMEN: Soft, nontender, nondistended, normoactive bowel sounds. No palpable organomegaly. MUSCULOSKELETAL: No joint swelling or deformity. EXTREMITIES: No cyanosis, clubbing, or pedal edema. NEUROLOGICAL: Gross neurological examination did not reveal any focal deficits. SKIN: No rashes. - Labs CBC & Chem 7: 06/11/20 07:19 06/11/20 07:19 Labs: Abnormal Lab Results - Last 24 Hours (Table) 06/11/20 06/11/20 06/11/20 Range/Units 11:50 16:55 20:13 POC Glucose (mg/dL) 133 H 118 H 141 H (75-99) mg/dL 06/12/20 Range/Units 06:47 POC Glucose (mg/dL) 122 H (75-99) mg/dL Microbiology - Last 24 Hours (Table) 06/11/20 11:00 Gram Stain - Preliminary Sputum Sputum Culture - Preliminary Assessment and Plan Plan: -Acute hypercapnic respiratory failure secondary to COPD exacerbation patient will continue on systemic steroids and inhalational treatments and doxycycline. Patient is presently in status was initially uses 2 L at home -Severe tracheal bronchitis continue with doxycycline. - sinus tachycardia secondary to hypoxemia -Continued nicotine use: Counseling was provided -DVT prophylaxis with the Lovenox and GI prophylaxis with Pepcid
--- NOTE | 2020-06-12 10:53 | P.PN ---
Subjective Progress Note Date: 06/12/20 Principal diagnosis: Acute on chronic hypoxic respiratory failure secondary to an acute exacerbation of COPD 64-year-old white female patient, chronic smoker, with known history of COPD, on home oxygen at 2 L around the clock, who came in for evaluation of increased shortness of breath, patient was having heart time walking related to exertional dyspnea, wheezing, cough. Patient lives at her brother's house, with multiple other people in the house who are smokers. Patient was producing some yellow colored sputum. Patient was sleepy and drowsy. Chest x-ray showed chronic emphysematous changes and mild cardio megaly without suspicious acute pulmonary process. She was started on nebulized bronchodilators, Symbicort, IV steroids. Labs reviewed, white blood cell count is within normal limits 5.8, hemoglobin is 12.5, sodium is 139, potassium 5.1, chloride is 95, CO2 38, BUN is 13, creatinine 0.42. Currently awake and alert, answering questions appropriately, she has a loose congested cough, diffuse wheezing and rhonchi bilaterally. Afebrile, currently on 4 L of oxygen and the pulse ox of 95%. On 06/10/2020 patient is seen in follow-up on a general medical surgical floor, she is awake and alert, still quite dyspneic with any exertion and bronchospastic, and has a congested cough. Patient remains on antibiotics, IV steroids, nebulized bronchodilators, patient is on 4 L oxygen and pulse ox of 96%, slightly tachycardic, no fever or chills. No new labs today. Cough with occasional production of yellowish sputum. The patient is seen today 06/11/2020 and follow-up on the regular medical floor. She is resting comfortably in bed. Awake and alert in no acute distress. She is still dyspneic with conversation. Dyspneic with minimal exertion. Still bronchospastic and wheezy. States she is feeling a bit better than yesterday but not quite back to her baseline. She is maintaining O2 saturation in the low 90s on 3 L/m per nasal cannula. She's afebrile. White count 10.5. Hemoglobin 10.9. Bicarb 45. Creatinine 0.52. She remains on Symbicort, DuoNeb's, IV Solu-Medrol. Empiric antibiotics in the form of doxycycline. Habitrol patch in place. The patient was seen today 06/12/2020 in follow-up on the regular medical floor. She is currently resting comfortably in bed. Awake and alert in no acute distress. She is breathing a bit easier today compared to yesterday. Not quite back to her baseline. Alert and a little more activity now. Maintaining O2 saturations in the 90s on 2 L/m per nasal cannula. Sputum culture pending. Blood sugar 122. She remains on Symbicort, DuoNeb's, IV Solu-Medrol. Empiric antibiotics in the form of doxycycline. Habitrol patch in place. Objective - Vital Signs Vital signs: Vital Signs Temp 97.7 F 06/12/20 07:00 Pulse 100 06/12/20 08:02 Resp 16 06/12/20 07:00 BP 106/69 06/12/20 07:00 Pulse Ox 92 L 06/12/20 09:41 Intake & Output 06/11/20 06/12/20 06/12/20 18:59 06:59 18:59 Other: # Voids 1 2 # Bowel Movements 1 - Exam GENERAL EXAM: Alert, pleasant 64-year-old female patient, on L nasal cannula with O2 saturation at 92%, comfortable in no apparent distress. HEAD: Normocephalic. EYES: Normal reaction of pupils, equal size. NOSE: Clear with pink turbinates. THROAT: No erythema or exudates. NECK: No masses, no JVD. CHEST: No chest wall deformity. LUNGS: Equal air entry with eye lateral end expiratory wheeze, few scattered rhonchi, diminished. CVS: S1 and S2 normal with no audible murmur, regular rhythm. ABDOMEN: No hepatosplenomegaly, normal bowel sounds, no guarding or rigidity. SPINE: No scoliosis or deformity SKIN: No rashes CENTRAL NERVOUS SYSTEM: No focal deficits, tone is normal in all 4 extremities. EXTREMITIES: There is no peripheral edema. No clubbing, no cyanosis. Peripheral pulses are intact. - Labs CBC & Chem 7: 06/11/20 07:19 06/11/20 07:19 Labs: Abnormal Lab Results - Last 24 Hours (Table) 06/11/20 06/11/20 06/11/20 Range/Units 11:50 16:55 20:13 POC Glucose (mg/dL) 133 H 118 H 141 H (75-99) mg/dL 06/12/20 Range/Units 06:47 POC Glucose (mg/dL) 122 H (75-99) mg/dL Microbiology - Last 24 Hours (Table) 06/11/20 11:00 Gram Stain - Preliminary Sputum Sputum Culture - Preliminary Assessment and Plan Assessment: #1. Acute on chronic hypoxic respiratory failure related to acute exacerbation of COPD and purulent tracheobronchitis #2. Suspect chronic hypercapnic respiratory failure related to COPD #3. Chronic and ongoing history of smoking Plan: The patient was seen and evaluated by Dr. Huggins. She is improved but not quite back to her baseline. Continue the current treatment plan Probable home in the a.m. We'll continue to follow I, the cosigning physician, performed a history & physical examination of the patient. Lungs sounds with bilateral end expiratory wheeze, few scattered rhonchi, diminished. Maintaining good O2 saturations in the 90s on 2 L/m per nasal cannula I discussed the assessment and plan of care with my nurse practitioner, Yasmin Plasencia. I attest to the above note as dictated by her.
[2020-06-12 11:35] LABS: Glucose,Whole Blood 114 mg/dL (75-99)
[2020-06-12 16:48] LABS: Glucose,Whole Blood 121 mg/dL (75-99)
[2020-06-12 20:24] LABS: Glucose,Whole Blood 140 mg/dL (75-99)
[2020-06-13 07:01] LABS: Glucose,Whole Blood 138 mg/dL (75-99)
[2020-06-13] MEDS: HEPARIN SODIUM,PORCINE 5,000 UNIT/ML 1 ML VIAL SQ SCH ×2 (07:04→21:28)
[2020-06-13] MEDS: methylPREDNISolone SOD SUCCI 40 MG/ML 1 ML VIAL IV SCH ×3 (07:04→21:28)
[2020-06-13] MEDS: SODIUM CHLORIDE 0.9% 1,000 ML IV SCH (07:04)
[2020-06-13] MEDS: FAMOTIDINE 20 MG TAB PO SCH ×2 (07:05→21:28)
[2020-06-13] MEDS: NICOTINE 21MG/24HR PATCH TRANSDERM SCH (07:05)
[2020-06-13 08:34] LABS: African American GFR (CKD) >90 (>60 ml/min/1.73 sqM); Blood Urea Nitrogen 19 mg/dL (7-17); Calcium 9.1 mg/dL (8.4-10.2); Chloride 94 mmol/L (98-107); Glucose 107 mg/dL (74-99); Non-African American GFR(CKD) >90 (>60 ml/min/1.73 sqM); Potassium 4.4 mmol/L (3.5-5.1); Sodium 139 mmol/L (137-145)
[2020-06-13 08:57] LABS: Anion Gap 6 mmol/L
[2020-06-13 08:59] LABS: Carbon Dioxide 39 mmol/L (22-30)
[2020-06-13] MEDS: IPRATROPIUM-ALBUTEROL 3 ML NEB INHALATION PRN ×4 (09:33→20:02)
[2020-06-13] MEDS: SYMBICORT 160-4.5 MCG INHALER INHALATION SCH ×2 (09:44→20:03)
[2020-06-13] MEDS: DOXYCYCLINE 100 MG in SODIUM CHLORIDE 0.9% 100 ML IVPB SCH ×2 (10:14→21:28)
[2020-06-13 11:15] LABS: Glucose,Whole Blood 117 mg/dL (75-99)
--- NOTE | 2020-06-13 12:53 | P.PN ---
Subjective Progress Note Date: 06/13/20 Principal diagnosis: Acute on chronic hypoxic respiratory failure related to acute exacerbation of COPD 64-year-old white female patient, chronic smoker, with known history of COPD, on home oxygen at 2 L around the clock, who came in for evaluation of increased shortness of breath, patient was having heart time walking related to exertional dyspnea, wheezing, cough. Patient lives at her brother's house, with multiple other people in the house who are smokers. Patient was producing some yellow colored sputum. Patient was sleepy and drowsy. Chest x-ray showed chronic emp hysematous changes and mild cardio megaly without suspicious acute pulmonary process. She was started on nebulized bronchodilators, Symbicort, IV steroids. Labs reviewed, white blood cell count is within normal limits 5.8, hemoglobin is 12.5, sodium is 139, potassium 5.1, chloride is 95, CO2 38, BUN is 13, creatinine 0.42. Currently awake and alert, answering questions appropriately, she has a loose congested cough, diffuse wheezing and rhonchi bilaterally. Afebrile, currently on 4 L of oxygen and the pulse ox of 95%. On 06/10/2020 patient is seen in follow-up on a general medical surgical floor, she is awake and alert, still quite dyspneic with any exertion and bronchospastic, and has a congested cough. Patient remains on antibiotics, IV steroids, nebulized bronchodilators, patient is on 4 L oxygen and pulse ox of 96%, slightly tachycardic, no fever or chills. No new labs today. Cough with occasional production of yellowish sputum. On 06/13/2020 patient seen in follow-up on the general medical surgical floor, breathing is improving, although still has some diffuse wheezes and rhonchi, but patient is tolerating activity, has been ambulating about the room, and the bathroom, she states she has significantly improved since admission, room air pulse ox of 85%, patient is on home oxygen normally at 2 L around the clock. Patient has been treated with IV steroids, antibiotics, and nebulized bronchodilators. Today's labs have been reviewed, CO2 is 39, the patient is suspected to have chronic hypercapnic respiratory failure related to history of COPD. No acute issues overnight. Patient is on doxycycline for antibiotic coverage, her sputum culture has shown no growth. She's been afebrile Objective - Vital Signs Vital signs: Vital Signs Temp 98.8 F 06/13/20 07:00 Pulse 110 H 06/13/20 12:12 Resp 18 06/13/20 07:00 BP 118/80 06/13/20 07:00 Pulse Ox 91 L 06/13/20 10:20 Intake & Output 06/12/20 06/13/20 06/13/20 18:59 06:59 18:59 Other: # Voids 2 2 # Bowel Movements 1 - Exam GENERAL EXAM: Alert, very pleasant, 64-year-old white female, 2 liters of oxygen pulse ox of 91% comfortable in no apparent distress. HEAD: Normocephalic/atraumatic. EYES: Normal reaction of pupils, equal size. Conjunctiva pink, sclera white. NOSE: Clear with pink turbinates. THROAT: No erythema or exudates. NECK: No masses, no JVD, no thyroid enlargement, no adenopathy. CHEST: No chest wall deformity. Symmetrical expansion. LUNGS: Equal air entry with diffuse wheezes, rhonchi CVS: Regular rate and rhythm, normal S1 and S2, no gallops, no murmurs, no rubs ABDOMEN: Soft, nontender. No hepatosplenomegaly, normal bowel sounds, no gua rding or rigidity. EXTREMITIES: No clubbing, no edema, no cyanosis, 2+ pulses and upper and lower extremities. MUSCULOSKELETAL: Muscle strength and tone normal. SPINE: No scoliosis or deformity SKIN: No rashes CENTRAL NERVOUS SYSTEM: Alert and oriented -3. No focal deficits, tone is normal in all 4 extremities. PSYCHIATRIC: Alert and oriented -3. Appropriate affect. Intact judgment and insight. - Labs CBC & Chem 7: 06/11/20 07:19 06/13/20 07:23 Labs: Abnormal Lab Results - Last 24 Hours (Table) 06/12/20 06/12/20 06/13/20 Range/Units 16:47 20:23 06:59 Chloride (98-107) mmol/L Carbon Dioxide (22-30) mmol/L BUN (7-17) mg/dL Creatinine (0.52-1.04) mg/dL Glucose (74-99) mg/dL POC Glucose (mg/dL) 121 H 140 H 138 H (75-99) mg/dL 06/13/20 06/13/20 Range/Units 07:23 11:13 Chloride 94 L (98-107) mmol/L Carbon Dioxide 39 H (22-30) mmol/L BUN 19 H (7-17) mg/dL Creatinine 0.46 L (0.52-1.04) mg/dL Glucose 107 H (74-99) mg/dL POC Glucose (mg/dL) 117 H (75-99) mg/dL Microbiology - Last 24 Hours (Table) 06/11/20 11:00 Gram Stain - Final Sputum Sputum Culture - Final Assessment and Plan Plan: Assessment: #1. Acute on chronic hypoxic respiratory failure related to acute exacerbation of COPD and purulent tracheobronchitis #2. Suspect chronic hypercapnic respiratory failure related to COPD #3. Chronic and ongoing history of smoking Plan: Patient continues to improve, although still not clear, still has some diffuse wheezes and rhonchi, but tolerating activity well, she did improve since admission, from pulmonary was positive she came to consider for discharge home, she has home oxygen, she has nebulizer machine, smoking cessation was strongly advised, we would like to see her in follow-up in the office in 7-10 days after discharge, an appointment will need to be made with Dr. Huggins in 7-10 days. I performed a history & physical examination of the patient and discussed their management with my nurse practitioner, Nadia Saunders. I reviewed the nurse practitioner's note and agree with the documented findings and plan of care. Lung sounds are positive for diffuse wheezes throughout the lung canela. The findings and the impression was discussed with the patient. I attest to the documentation by the nurse practitioner. Time with Patient: Less than 30
--- NOTE | 2020-06-13 13:14 | P.PN ---
Subjective Patient is 63-year-old female is admitted for COPD exacerbation patient has symptoms for last few days with cough and sputum production yellowish pr oduction. Patient smokes about 1 pack per day trying to quit smoking. Unable to get much of the history as patient is sleepy and drowsy. Patient chest x-ray did not show any pneumonia. Patient was started on doxycycline and systemic steroids. 06/10/2020 Patient is seen and evaluated in follow-up and continues to be quite dyspneic and bronchospastic and is having coughing spells when attempting to talk. Patient states she is having more mucus production and able to expectorate. Patient is currently maintained on IV antibiotics in the form of doxycycline along with IV steroids and breathing inhalational treatments and will continue at this time. Pulmonary is following. Patient is awake and alert and oriented sitting up in the chair. Patient is currently maintained on 4 L of oxygen and discussed with nursing staff about increasing activity and weaning off FiO2. Patient does have a nebulizer at home although is requesting a new one and a prescription was provided to case management for this. 06/11/2020 Patient is still having symptoms and wheezing on exam. Patient is feeling better but not at her baseline as per the patient 06/12/2020 She is still wheezing quite a bit will try to wean her off oxygen. She'll continued on IV fluids. Heart rate has come down a bit patient overall is feeling better than admission. 06/13/2020 Patient is feeling much better requiring 2 L of oxygen still has significant expiratory wheezing Review of systems: Constitutional: Reports mild fatigue, no reports of fever, or chills Cardiovascular: No reports of chest pain or palpitations Respiratory: In use to have shortness of breath GI: No reports of nausea, vomiting, or diarrhea : No reports of dysuria or retention Neurovascular: No reports of weakness or numbness Objective - Vital Signs Vital signs: Vital Signs Temp 98.8 F 06/13/20 07:00 Pulse 110 H 06/13/20 12:12 Resp 18 06/13/20 07:00 BP 118/80 06/13/20 07:00 Pulse Ox 91 L 06/13/20 10:20 Intake & Output 06/12/20 06/13/20 06/13/20 18:59 06:59 18:59 Other: # Voids 2 2 # Bowel Movements 1 - Exam GENERAL: The patient is alert and oriented x3, not in any acute distress. Well d eveloped, well nourished. HEENT: Pupils are round and equally reacting to light. EOMI. No scleral icterus. No conjunctival pallor. Normocephalic, atraumatic. No pharyngeal erythema. No thyromegaly. CARDIOVASCULAR: S1 and S2 present. No murmurs, rubs, or gallops. PULMONARY: Diffuse bilateral rhonchi and the significant expiratory wheezing on exam, bronchospastic probably there may be some improvement in her wheezing today ABDOMEN: Soft, nontender, nondistended, normoactive bowel sounds. No palpable organomegaly. MUSCULOSKELETAL: No joint swelling or deformity. EXTREMITIES: No cyanosis, clubbing, or pedal edema. NEUROLOGICAL: Gross neurological examination did not reveal any focal deficits. SKIN: No rashes. - Labs CBC & Chem 7: 06/11/20 07:19 06/13/20 07:23 Labs: Abnormal Lab Results - Last 24 Hours (Table) 06/12/20 06/12/20 06/13/20 Range/Units 16:47 20:23 06:59 Chloride (98-107) mmol/L Carbon Dioxide (22-30) mmol/L BUN (7-17) mg/dL Creatinine (0.52-1.04) mg/dL Glucose (74-99) mg/dL POC Glucose (mg/dL) 121 H 140 H 138 H (75-99) mg/dL 06/13/20 06/13/20 Range/Units 07:23 11:13 Chloride 94 L (98-107) mmol/L Carbon Dioxide 39 H (22-30) mmol/L BUN 19 H (7-17) mg/dL Creatinine 0.46 L (0.52-1.04) mg/dL Glucose 107 H (74-99) mg/dL POC Glucose (mg/dL) 117 H (75-99) mg/dL Microbiology - Last 24 Hours (Table) 06/11/20 11:00 Gram Stain - Final Sputum Sputum Culture - Final Assessment and Plan Plan: -Acute hypercapnic respiratory failure secondary to COPD exacerbation patient will continue on systemic steroids and inhalational treatments and doxycycline. Patient is on 2 L of oxygen today patient is on 2 L at home as well -Severe tracheal bronchitis continue with doxycycline. - sinus tachycardia secondary to hypoxemia -Continued nicotine use: Counseling was provided -DVT prophylaxis with the Lovenox and GI prophylaxis with Pepcid
[2020-06-13 17:07] LABS: Glucose,Whole Blood 140 mg/dL (75-99)
[2020-06-13 21:30] LABS: Glucose,Whole Blood 165 mg/dL (75-99)
[2020-06-14 06:54] LABS: Glucose,Whole Blood 105 mg/dL (75-99)
[2020-06-14 07:29] VITALS: BP 113/72; RESP 19; TEMP 97.7
[2020-06-14] MEDS: IPRATROPIUM-ALBUTEROL 3 ML NEB INHALATION PRN ×2 (08:55→12:06)
[2020-06-14] MEDS: SYMBICORT 160-4.5 MCG INHALER INHALATION SCH (08:55)
[2020-06-14] MEDS: HEPARIN SODIUM,PORCINE 5,000 UNIT/ML 1 ML VIAL SQ SCH (09:07)
[2020-06-14] MEDS: methylPREDNISolone SOD SUCCI 40 MG/ML 1 ML VIAL IV SCH (09:07)
[2020-06-14] MEDS: NICOTINE 21MG/24HR PATCH TRANSDERM SCH (09:08)
[2020-06-14] MEDS: DOXYCYCLINE 100 MG in SODIUM CHLORIDE 0.9% 100 ML IVPB SCH (09:08)
[2020-06-14] MEDS: FAMOTIDINE 20 MG TAB PO SCH (09:08)
[2020-06-14 11:23] LABS: Glucose,Whole Blood 99 mg/dL (75-99)
--- NOTE | 2020-06-14 11:58 | P.PN ---
Subjective Progress Note Date: 06/14/20 Principal diagnosis: Acute on chronic hypoxic respiratory failure related to acute exacerbation of COPD 64-year-old white female patient, chronic smoker, with known history of COPD, on home oxygen at 2 L around the clock, who came in for evaluation of increased shortness of breath, patient was having heart time walking related to exertional dyspnea, wheezing, cough. Patient lives at her brother's house, with multiple other people in the house who are smokers. Patient was producing some yellow colored sputum. Patient was sleepy and drowsy. Chest x-ray showed chronic emp hysematous changes and mild cardio megaly without suspicious acute pulmonary process. She was started on nebulized bronchodilators, Symbicort, IV steroids. Labs reviewed, white blood cell count is within normal limits 5.8, hemoglobin is 12.5, sodium is 139, potassium 5.1, chloride is 95, CO2 38, BUN is 13, creatinine 0.42. Currently awake and alert, answering questions appropriately, she has a loose congested cough, diffuse wheezing and rhonchi bilaterally. Afebrile, currently on 4 L of oxygen and the pulse ox of 95%. On 06/10/2020 patient is seen in follow-up on a general medical surgical floor, she is awake and alert, still quite dyspneic with any exertion and bronchospastic, and has a congested cough. Patient remains on antibiotics, IV steroids, nebulized bronchodilators, patient is on 4 L oxygen and pulse ox of 96%, slightly tachycardic, no fever or chills. No new labs today. Cough with occasional production of yellowish sputum. On 06/13/2020 patient seen in follow-up on the general medical surgical floor, breathing is improving, although still has some diffuse wheezes and rhonchi, but patient is tolerating activity, has been ambulating about the room, and the bathroom, she states she has significantly improved since admission, room air pulse ox of 85%, patient is on home oxygen normally at 2 L around the clock. Patient has been treated with IV steroids, antibiotics, and nebulized bronchodilators. Today's labs have been reviewed, CO2 is 39, the patient is suspected to have chronic hypercapnic respiratory failure related to history of COPD. No acute issues overnight. Patient is on doxycycline for antibiotic coverage, her sputum culture has shown no growth. She's been afebrile On 06/14/2020 patient seen in follow-up on selective care unit, she is awake and alert, in no acute distress, breathing better, sounding better today, is on 2 L of oxygen pulse ox of 90%, hemodynamically stable, patient has been afebrile, she's been treated with a combination of doxycycline, nebulized broncho-dilators and IV steroids, patient is improving. Objective - Vital Signs Vital signs: Vital Signs Temp 97.7 F 06/14/20 07:00 Pulse 110 H 06/14/20 09:09 Resp 19 06/14/20 07:00 BP 113/72 06/14/20 07:00 Pulse Ox 90 L 06/14/20 07:00 Intake & Output 06/13/20 06/14/20 06/14/20 18:59 06:59 18:59 Intake Total 500 Balance 500 Intake: Oral 500 Other: # Voids 1 1 - Exam GENERAL EXAM: Alert, very pleasant, 64-year-old white female, 2 liters of oxygen pulse ox of 91% comfortable in no apparent distress. HEAD: Normocephalic/atraumatic. EYES: Normal reaction of pupils, equal size. Conjunctiva pink, sclera white. NOSE: Clear with pink turbinates. THROAT: No erythema or exudates. NECK: No masses, no JVD, no thyroid enlargement, no adenopathy. CHEST: No chest wall deformity. Symmetrical expansion. LUNGS: Equal air entry with an expiratory wheezes CVS: Regular rate and rhythm, normal S1 and S2, no gallops, no murmurs, no rubs ABDOMEN: Soft, nontender. No hepatosplenomegaly, normal bowel sounds, no guarding or rigidity. EXTREMITIES: No clubbing, no edema, no cyanosis, 2+ pulses and upper and lower extremities. MUSCULOSKELETAL: Muscle strength and tone normal. SPINE: No scoliosis or deformity SKIN: No rashes CENTRAL NERVOUS SYSTEM: Alert and oriented -3. No focal deficits, tone is normal in all 4 extremities. PSYCHIATRIC: Alert and oriented -3. Appropriate affect. Intact judgment and insight. - Labs CBC & Chem 7: 06/11/20 07:19 06/13/20 07:23 Labs: Abnormal Lab Results - Last 24 Hours (Table) 06/13/20 06/13/20 06/14/20 Range/Units 17:06 21:07 06:53 POC Glucose (mg/dL) 140 H 165 H 105 H (75-99) mg/dL Microbiology - Last 24 Hours (Table) 06/11/20 11:00 Gram Stain - Final Sputum Sputum Culture - Final Assessment and Plan Plan: Assessment: #1. Acute on chronic hypoxic respiratory failure related to acute exacerbation of COPD and purulent tracheobronchitis #2. Suspect chronic hypercapnic respiratory failure related to COPD #3. Chronic and ongoing history of smoking Plan: Patient is improving, no fever or chills, breathing is comfortable, no significant cough or congestion, from pulmonary perspective patient is stable for discharge home today on prednisone taper, nebulizers, patient has home oxygen and nebulizer machine at home, she can resume DuoNeb. We told the patient to get established with the equine breeder in her area, otherwise will see the patient in follow-up in 7-10 days I performed a history & physical examination of the patient and discussed their management with my nurse practitioner, Nadia Saunders. I reviewed the nurse practitioner's note and agree with the documented findings and plan of care. Lung sounds are positive for diffuse wheezes throughout the lung canela. The findings and the impression was discussed with the patient. I attest to the documentation by the nurse practitioner. Time with Patient: Less than 30
[2020-06-14 12:09] VITALS: PULSE 108
--- NOTE | 2020-06-14 14:06 | P.DS ---
Providers Date of admission: 06/08/20 21:48 Attending physician: Lula Cisse Consults: 06/09/20 11:16 Consult Physician Routine Consulting Provider: Edu Huggins Consult Reason/Comments: COPD Do you want consulting provider notified?: Yes Primary care physician: Stated None Hospital Course: Patient is 63-year-old female is admitted for COPD exacerbation patient has symptoms for last few days with cough and sputum production yellowish production. Patient smokes about 1 pack per day trying to quit smoking. Unable to get much of the history as patient is sleepy and drowsy. Patient chest x-ray did not show any pneumonia. Patient was started on doxycycline and systemic steroids. 06/10/2020 Patient is seen and evaluated in follow-up and continues to be quite dyspneic and bronchospastic and is having coughing spells when attempting to talk. Patient states she is having more mucus production and able to expectorate. Patient is currently maintained on IV antibiotics in the form of doxycycline along with IV steroids and breathing inhalational treatments and will continue at this time. Pulmonary is following. Patient is awake and alert and oriented sitting up in the chair. Patient is currently maintained on 4 L of oxygen and discussed with nursing staff about increasing activity and weaning off FiO2. Patient does have a nebulizer at home although is requesting a new one and a prescription was provided to case management for this. 06/11/2020 Patient is still having symptoms and wheezing on exam. Patient is feeling better but not at her baseline as per the patient 06/12/2020 She is still wheezing quite a bit will try to wean her off oxygen. She'll continued on IV fluids. Heart rate has come down a bit patient overall is feeling better than admission. 06/13/2020 Patient is feeling much better requiring 2 L of oxygen still has significant expiratory wheezing 06/14/2020 Her wheezing did improve and is at her baseline although still has wheezing. Exam GENERAL: The patient is alert and oriented x3, not in any acute distress. Well developed, well nourished. HEENT: Pupils are round and equally reacting to light. EOMI. No scleral icterus. No conjunctival pallor. Normocephalic, atraumatic. No pharyngeal erythema. No thyromegaly. CARDIOVASCULAR: S1 and S2 present. No murmurs, rubs, or gallops. PULMONARY: Wheezing improved significantly compared to yesterday ABDOMEN: Soft, nontender, nondistended, normoactive bowel sounds. No palpable organomegaly. MUSCULOSKELETAL: No joint swelling or deformity. EXTREMITIES: No cyanosis, clubbing, or pedal edema. NEUROLOGICAL: Gross neurological examination did not reveal any focal deficits. SKIN: No rashes. Assessment and Plan Plan: -Acute hypercapnic respiratory failure secondary to COPD exacerbation improved and is on 2 L of oxygen saturating well on 2 L feels like have her baseline patient does have some wheezing at baseline -Severe tracheal bronchitis continue with doxycycline. - sinus tachycardia secondary to hypoxemia -Continued nicotine use: Counseling was provided Plan - Discharge Summary Discharge Rx Participant: Yes New Discharge Prescriptions: New predniSONE 0 mg PO DIRECTED 16 Days #40 tab Doxycycline [Vibramycin] 100 mg PO BID 5 Days #10 capsule Famotidine [Pepcid] 20 mg PO BID #30 tablet Tiotropium [place] [Spiriva] 1 cap INHALATION DAILY #1 device Budesonide-Formot 160-4.5 Mcg [Symbicort 160-4.5 Mcg Inhaler] 2 puff INHALATION BID #1 inhaler No Action Ipratropium-Albuterol Nebulize [Duoneb 0.5 mg-3 mg/3 ml Soln] 3 ml INHALATION RT-TID Discharge Medication List Ipratropium-Albuterol Nebulize [Duoneb 0.5 mg-3 mg/3 ml Soln] 3 ml INHALATION RT-TID 06/08/20 [History] Budesonide-Formot 160-4.5 Mcg [Symbicort 160-4.5 Mcg Inhaler] 2 puff INHALATION BID #1 inhaler 06/14/20 [Rx] Doxycycline [Vibramycin] 100 mg PO BID 5 Days #10 capsule 06/14/20 [Rx] Famotidine [Pepcid] 20 mg PO BID #30 tablet 06/14/20 [Rx] Tiotropium [place]wood [Spiriva] 1 cap INHALATION DAILY #1 device 06/14/20 [Rx] predniSONE 0 mg PO DIRECTED 16 Days #40 tab 06/14/20 [Rx] Follow up Appointment(s)/Referral(s): Edu Huggins MD [STAFF PHYSICIAN] - 06/29/20 3:30 pm (with Yasmin) Patient Instructions/Handouts: How to Stop Smoking (DC), COPD (Chronic Obstructive Pulmonary Disease) (DC) Activity/Diet/Wound Care/Special Instructions: 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 Patient to follow-up with primary care doctor in 3 days. Patient to follow-up with lung doctor in her home area in one week, or may return to [place] to follow-up with Dr. Huggins. Discharge Disposition: HOME SELF-CARE
== END 2020-06-14 14:48 | disposition home or self-care (01) | DRG 190 ==
LOC: 4SSUR 21:48
PROVIDERS: ADMIT Hospitalist; ATTEND Hospitalist
DX: J44.1 Chronic obstructive pulmonary disease with (acute) exacerbation (principal); J96.21 Acute and chronic respiratory failure with hypoxia; J96.22 Acute and chronic respiratory failure with hypercapnia; F17.210 Nicotine dependence, cigarettes, uncomplicated; I50.9 Heart failure, unspecified; J40 Bronchitis, not specified as acute or chronic; Z20.828 Contact with and (suspected) exposure to other viral communicable diseases; R00.0 Tachycardia, unspecified; Z90.49 Acquired absence of other specified parts of digestive tract; Z90.89 Acquired absence of other organs; Z98.890 Other specified postprocedural states; Z82.5 Family history of asthma and other chronic lower respiratory diseases; Z99.81 Dependence on supplemental oxygen; Z79.52 Long term (current) use of systemic steroids
CPT/HCPCS: 71046; 80048; 85025; 87070; 87205; 94640; 94760